=== PATIENT | female | born 1995 | race Caucasian/White ===

== ENCOUNTER 2022-12-18 17:35 | Emergency (ER) | payer BC, OTHER ==
--- NOTE | 2022-12-18 19:26 | ED ---
Fever HPI - General Source: patient, family, RN notes reviewed Mode of arrival: wheelchair Limitations: no limitations <Aditi Berman - Last Filed: 12/18/22 19:25> <Yogi Barton - Last Filed: 12/18/22 23:01> - General Chief Complaint: Fever Stated Complaint: 8 weeks preg/fever Time Seen by Provider: 12/18/22 19:25 - History of Present Illness Initial Comments: Patient is a 27-year-old female who presents to the emergency department for fever. Patient has upper respiratory symptoms including fever, sore throat, headache, body aches. She is a weeks . No abdominal pain or vaginal bleeding. (Aditi Berman) Patient is a 27-year-old female currently 8 weeks presenting with chief complaint of fever. Symptoms started this morning. She also admits to sore throat, headache, body aches, lower back pain. No cough, chest pain, difficulty breathing. She is having no abdominal pain or vaginal bleeding. She has her first appointment tomorrow with Dr. Cleaning. (Yogi Barton) - Related Data Previous Rx's Medication Instructions Recorded Fluconazole [Diflucan] 150 mg PO ONCE #1 tab 06/23/15 Cephalexin [Keflex] 500 mg PO Q12HR 5 Days #10 cap 12/18/22 Allergies Allergy/AdvReac Type Severity Reaction Status Date / Time No Known Allergies Allergy Verified 12/18/22 18:12 Review of Systems ROS Other: All systems not noted in ROS Statement are negative. <Aditi Berman - Last Filed: 12/18/22 19:25> ROS Other: All systems not noted in ROS Statement are negative. <Yogi Barton - Last Filed: 12/18/22 23:01> ROS Statement: Those systems with pertinent positive or pertinent negative responses have been documented in the HPI. Past Medical History Past Medical History: No Reported History Additional Past Medical History / Comment(s): Chronic UTI History of Any Multi-Drug Resistant Organisms: None Reported Past Surgical History: No Surgical Hx Reported Past Psychological History: No Psychological Hx Reported Smoking Status: Never smoker Past Alcohol Use History: None Reported Past Drug Use History: None Reported <Aditi Berman - Last Filed: 12/18/22 19:25> General Exam Limitations: no limitations <Aditi Berman - Last Filed: 12/18/22 19:25> Limitations: no limitations General appearance: alert, in no apparent distress Head exam: Present: atraumatic, normocephalic, normal inspection Eye exam: Present: normal appearance, EOMI. Absent: scleral icterus, periorbital swelling ENT exam: Present: normal exam, normal oropharynx, mucous membranes moist Neck exam: Present: normal inspection, full ROM Respiratory exam: Present: normal lung sounds bilaterally. Absent: respiratory distress, wheezes, rales, rhonchi, stridor Cardiovascular Exam: Present: regular rate, normal rhythm, normal heart sounds. Absent: systolic murmur, diastolic murmur, rubs, gallop, clicks Neurological exam: Present: alert, oriented X3, CN II-XII intact Psychiatric exam: Present: normal affect, normal mood Skin exam: Present: warm, dry, intact, normal color. Absent: rash <Yogi Barton - Last Filed: 12/18/22 23:01> - General Exam Comments Initial Comments: Visual Physical Exam Vital signs reviewed General: Well-appearing, nontoxic, no acute distress. Head: Normocephalic, atraumatic Eyes: PERRLA, EOMI ENT: Airway patent Chest: Nonlabored breathing Skin: No visual rash, normal skin tone Neuro: Alert and oriented 3 Musculoskeletal: No gross abnormalities (Aditi Berman) Course Vital Signs 12/18/22 12/18/22 18:09 22:45 Temperature 99.7 F H 98.2 F Pulse Rate 115 H 93 Respiratory 18 20 Rate Blood Pressure 119/72 114/78 O2 Sat by Pulse 97 99 Oximetry Medical Decision Making <Yogi Barton - Last Filed: 12/18/22 23:01> - Medical Decision Making Was pt. sent in by a medical professional or institution (, PA, CRITICAL CARE NURSE PRACTITIONER, urgent care, hospital, or [facility]...) When possible be specific @ -No Did you speak to anyone other than the patient for history (EMS, parent, family, police, friend...)? What history was obtained from this source @ -No Did you review nursing and triage notes (agree or disagree)? Why? @ -I reviewed and agree with nursing and triage notes Were old charts reviewed (outside hosp., previous admission, EMS record, old EKG, old radiological studies, urgent care reports/EKG's, [facility] records)? Report findings @ -No old charts were reviewed Differential Diagnosis (chest pain, altered mental status, abdominal pain women, abdominal pain men, vaginal bleeding, weakness, fever, dyspnea, syncope, headache, dizziness, GI bleed, back pain, seizure, CVA, palpatations, mental health, musculoskeletal)? @ - MDM Differential Fever: Pneumonia, viral URI, endocarditis, myocarditis, pericarditis, otitis, sinusitis, peritonsillar Abscess, retropharyngeal Abscess, epiglottitis, peritonitis, appendicitis, Sheryl cystitis, diverticulitis, hepatitis, colitis, UTI, PID, TOA, pyelonephritis, prostatitis, epididymitis, meningitis, encephalitis, pulmonary embolism, CVA, thyroid storm, pancreatitis, adrenal crisis, cavernous sinus thrombosis this is not meant to be an all-inclusive list. EKG interpreted by me (3pts min.). @ -As above X-rays interpreted by me (1pt min.). @ -None done CT interpreted by me (1pt min.). @ -None done U/S interpreted by me (1pt. min.). @ -None done What testing was considered but not performed or refused? (CT, X-rays, U/S, labs)? Why? @ -None What meds were considered but not given or refused? Why? @ -None Did you discuss the management of the patient with other professionals (professionals i.e. , PA, CRITICAL CARE NURSE PRACTITIONER, lab, RT, psych nurse, high school social science teacher, hearing stenographer, teacher, homicide squad commanding officer, outsole caser)? Give summary @ -No Was smoking cessation discussed for >3mins.? @ -No Was critical care preformed (if so, how long)? @ -No Were there social determinants of health that impacted care today? How? (Homelessness, low income, unemployed, alcoholism, drug addiction, transportation, low edu. Level, literacy, decrease access to med. care, correction, rehab)? @ -No Was there de-escalation of care discussed even if they declined (Discuss DNR or withdrawal of care, Hospice)? DNR status @ -No What co-morbidities impacted this encounter? (DM, HTN, Smoking, COPD, CAD, Cancer, CVA, ARF, Chemo, Hep., AIDS, mental health diagnosis, sleep apnea, mo rbid obesity)? @ -None Was patient admitted / discharged? Hospital course, mention meds given and route, prescriptions, significant lab abnormalities, going to OR and other pertinent info. @ -Patient is a 27-year-old female he weeks presenting with chief complaint of fever. Also admits to sore throat, body aches, headache. No vaginal bleeding or abdominal pain. Physical examination is unremarkable. Patient is negative for influenza, RSV, Covid, group A strep. Urine is positive for leukocytes and 8 RBCs. She'll be treated with Keflex. She has her first appointment tomorrow Dr. Cleaning, instructed to follow-up. Educated on Tylenol for fever and pain management. Follow-up with PCP. Report back to ER with any new or worsening symptoms. Discussed return parameters and answered all questions. Patient conveyed verbal understanding and agreed to the plan. I discussed this case in detail with my attending Dr. Pierson Undiagnosed new problem with uncertain prognosis? @ -No Drug Therapy requiring intensive monitoring for toxicity (Heparin, Nitro, Insulin, Cardizem)? @ -No Were any procedures done? @ -No Diagnosis/symptom? @ -UTI Acute, or Chronic, or Acute on Chronic? @ -Acute Uncomplicated (without systemic symptoms) or Complicated (systemic symptoms)? @ -Uncomplicated Side effects of treatment? @ -No Exacerbation, Progression, or Severe Exacerbation? @ -No Poses a threat to life or bodily function? How? (Chest pain, [place], NC, pneumonia, PE, COPD, DKA, ARF, appy, cholecystitis, CVA, Diverticulitis, Homicidal, Suicidal, threat to staff... and all critical care pts) @ -No (Yogi Barton) - Lab Data Lab Results 12/18/22 12/18/22 12/18/22 Range/Units 19:58 19:58 20:56 Urine Color Yellow Urine Appearance Cloudy H (Clear) Urine pH 6.0 (5.0-8.0) Ur Specific Dahlgren 1.013 (1.001-1.035) Urine Protein Negative (Negative) Urine Glucose (UA) Negative (Negative) Urine Ketones 1+ H (Negative) Urine Blood Moderate H (Negative) Urine Nitrite Negative (Negative) Urine Bilirubin Negative (Negative) Urine Urobilinogen <2.0 (<2.0) mg/dL Ur Leukocyte Esterase Large H (Negative) Urine RBC 8 H (0-5) /hpf Urine WBC 15 H (0-5) /hpf Ur Squamous Epith Cells 13 H (0-4) /hpf Urine Mucus Few H (None) /hpf Influenza Type A (PCR) Not Detected (Not Detectd) Influenza Type B (PCR) Not Detected (Not Detectd) RSV (PCR) Not Detected (Not Detectd) SARS-CoV-2 (PCR) Not Detected (Not Detectd) Group A Strep (PCR) NOT DETECTED (Not Detectd) Disposition <AntonellaAditi - Last Filed: 12/18/22 19:25> Is patient prescribed a controlled substance at d/c from ED?: No Time of Disposition: 22:13 <Yogi Barton - Last Filed: 12/18/22 23:01> Clinical Impression: UTI (urinary tract infection) during , Pharyngitis Disposition: HOME SELF-CARE Condition: Good Instructions (If sedation given, give patient instructions): Pharyngitis (ED), Fever in Adults (ED), Urinary Tract Infection in (ED) Additional Instructions: Follow-up with PCP and [facility]. Report back to ER with any new or worsening symptoms. Take medication as prescribed. Take Tylenol as needed for fever and pain control. Rest and drink plenty of fluids. Prescriptions: Cephalexin [Keflex] 500 mg PO Q12HR 5 Days #10 cap Referrals: Bill Corral NPC [REFERRING] - 1-2 days Tanja Cleaning DO [Doctor of Osteopathic Medicine] - 1-2 days
[2022-12-18] MEDS ORDERED: ACETAMINOPHEN TAB 325 MG TAB PO STA (20:49)
[2022-12-18 21:22] LABS: Appearance,Urine Cloudy (Clear); Bilirubin,Urine Negative (Negative); Blood,Urine Moderate (Negative); Color,Urine Yellow; Glucose,Urine (UA) Negative (Negative); Ketones,Urine 1+ (Negative); Leukocyte Esterase,Urine Large (Negative); Mucus,Urine Few /hpf; Nitrite,Urine Negative (Negative); Protein,Urine Negative (Negative); RBC,Urine 8 /hpf (0-5); Specific Gravity,Urine 1.013 (1.001-1.035); Squamous Epithelial Cell,Urine 13 /hpf (0-4); Urobilinogen,Urine <2.0 mg/dL (<2.0); WBC,Urine 15 /hpf (0-5)
[2022-12-18] MEDS ORDERED: NITROFURANTOIN MONOHYD/M-CRYST 100 MG CAP PO STA (22:08)
[2022-12-18] MEDS ORDERED: CEPHALEXIN 500 MG CAP PO STA (22:11)
[2022-12-18 22:46] VITALS: BP 114/78; PULSE 93; RESP 20; TEMP 98.2
== END 2022-12-18 23:56 | disposition home or self-care (01) ==
LOC: EC 17:35 → SUPCPDRO 17:35 → EC 23:56
DX: O23.41 Unspecified infection of urinary tract in pregnancy, first trimester (principal); O99.511 Diseases of the respiratory system complicating pregnancy, first trimester; J02.9 Acute pharyngitis, unspecified; Z3A.08 8 weeks gestation of pregnancy; Z20.822 Contact with and (suspected) exposure to COVID-19
CPT/HCPCS: 81001; 87086; 87636; 87651; 99283

== ENCOUNTER 2023-07-24 14:13 | Inpatient (IN) | payer BC ==
[2023-07-24 14:57] LABS: Basophils % (A) 0 %; Eosinophils # (A) 0.1 k/uL (0-0.7); Eosinophils % (A) 1 %; HCT 33.4 % (34.0-46.0); HGB 11.5 gm/dL (11.4-16.0); Lymphocytes # (A) 1.9 k/uL (1.0-4.8); Lymphocytes % (A) 19 %; MCH 30.9 pg (25.0-35.0); MCHC 34.5 g/dL (31.0-37.0); MCV 89.7 fL (80.0-100.0); Mean Platelet Volume 9.8; Monocytes # (A) 0.5 k/uL (0-1.0); Monocytes % (A) 5 %; Neutrophils # (A) 7.7 k/uL (1.3-7.7); Neutrophils % (A) 74 %; Platelet Count 240 k/uL (150-450); RBC 3.73 m/uL (3.80-5.40); RDW 14.2 % (11.5-15.5); WBC 10.4 k/uL (3.8-10.6)
[2023-07-24 15:03] LABS: ALT 18 U/L (4-34); AST 23 U/L (14-36); African American GFR (CKD) >90 (>60 ml/min/1.73 sqM); Blood Urea Nitrogen 8 mg/dL (7-17); Non-African American GFR(CKD) >90 (>60 ml/min/1.73 sqM)
[2023-07-24] MEDS ORDERED: DINOPROSTONE 10 MG INSERT.ER VAGINAL ONE (15:39)
--- NOTE | 2023-07-24 16:24 | P.HPOB ---
History of Present Illness H&P Date: 07/24/23 Chief Complaint: gestational hypertension 28 year old presented to the office today at 38 weeks 6 days with elevated BPs. 150-160/100-109. She denies symptoms associated with pre-eclampsia. She has normal labs so far but BPs remain elevated. SVE closed/thick./-3. she is not juice and heart tones are category I. Review of Systems All systems: negative Constitutional: Denies chills, Denies fever Eyes: denies blurred vision, denies pain Ears, nose, mouth and throat: Denies headache, Denies sore throat Cardiovascular: Denies chest pain, Denies shortness of breath Respiratory: Denies cough Gastrointestinal: Denies abdominal pain, Denies diarrhea, Denies nausea, Denies vomiting Genitourinary: Denies dysuria, Denies hematuria Musculoskeletal: Denies myalgias Integumentary: Denies pruritus, Denies rash Neurological: Denies numbness, Denies weakness Psychiatric: Denies anxiety, Denies depression Endocrine: Denies fatigue, Denies weight change Past Medical History Past Medical History: No Reported History Additional Past Medical History / Comment(s): Chronic UTI History of Any Multi-Drug Resistant Organisms: None Reported Past Surgical History: No Surgical Hx Reported Smoking Status: Never smoker Medications and Allergies Home Medications Medication Instructions Recorded Confirmed Type Magnesium 200 mg PO DAILY 07/24/23 07/24/23 History Allergies Allergy/AdvReac Type Severity Reaction Status Date / Time No Known Allergies Allergy Verified 07/24/23 14:20 Exam Osteopathic Statement: *. No significant issues noted on an osteopathic str uctural exam other than those noted in the History and Physical/Consult. Intake and Output 07/24/23 07/24/23 07/24/23 06:59 14:59 22:59 Other: Weight 104.326 kg Heart: Regular rate and rhythm Lungs: Clear to auscultation bilaterally Abdomen: Soft, nontender Extremities: Negative Homans sign Results Result Diagrams: 07/24/23 14:35 07/24/23 14:35 Abnormal Lab Results - Last 24 Hours (Table) 07/24/23 Range/Units 14:35 RBC 3.73 L (3.80-5.40) m/uL Hct 33.4 L (34.0-46.0) % Assessment and Plan (1) Gestational hypertension Current Visit: Yes Status: Acute Code(s): O13.9 - GESTATIONAL HTN W/O SIGNIFICANT PROTEINURIA, UNSP TRIMESTER SNOMED Code(s): 79355146 (2) 38 weeks gestation of Current Visit: Yes Status: Acute Code(s): Z3A.38 - 38 WEEKS GESTATION OF SNOMED Code(s): 39218988 Plan: 1. induction of labor indicated due to GHTN 2. will induce with cervidil and then pitocin and amniotomy in the morning.
[2023-07-24] MEDS: LABETALOL 200 MG TAB PO SCH (17:26)
[2023-07-24 17:56] LABS: Appearance,Urine Clear (Clear); Bacteria,Urine Rare /hpf; Bilirubin,Urine Negative (Negative); Blood,Urine Negative (Negative); Color,Urine Colorless; Glucose,Urine (UA) Negative (Negative); Ketones,Urine Negative (Negative); Leukocyte Esterase,Urine Moderate (Negative); Nitrite,Urine Negative (Negative); Protein,Urine Negative (Negative); RBC,Urine 1 /hpf (0-5); Specific Gravity,Urine 1.003 (1.001-1.035); Squamous Epithelial Cell,Urine 1 /hpf (0-4); Urobilinogen,Urine <2.0 mg/dL (<2.0); WBC,Urine 4 /hpf (0-5)
[2023-07-24 17:58] LABS: Uric Acid 5.2 mg/dL (3.7-7.4)
[2023-07-24 18:11] LABS: Creatinine,Urine Random 15.2 mg/dL; Protein/Creatinine Ratio,Urine 0.921
[2023-07-24 18:53] LABS: INR 0.9 (<1.2); Partial Thromboplastin Time 25.1 sec (22.0-30.0); Prothrombin Time 9.9 sec (10.0-12.5)
[2023-07-25] MEDS: LABETALOL 200 MG TAB PO SCH ×3 (00:04→21:02)
[2023-07-25] MEDS ORDERED: ACETAMINOPHEN TAB 325 MG TAB PO STA (00:05)
[2023-07-25] MEDS ORDERED: METHYLERGONOVINE 0.2 MG/ML 1 ML AMP IM PRN ×2 (04:05→21:51)
[2023-07-25] MEDS ORDERED: CARBOPROST TROMETHAMINE 250 MCG/ML 1 ML AMP IM PRN ×2 (04:05→21:51)
[2023-07-25] MEDS ORDERED: miSOPROStoL 200 MCG TAB PO PRN ×2 (04:05→21:51)
[2023-07-25] MEDS ORDERED: OXYTOCIN 10 UNIT/ML 1 ML VIAL IM PRN ×2 (04:05→21:51)
[2023-07-25] MEDS ORDERED: LIDOCAINE 0.5% (PF) 5 MG/ML (50 ML SDV) SQ PRN (04:05)
[2023-07-25] MEDS ORDERED: TRANEXAMIC 1,000 MG/100ML-NACL 1,000 MG in EMPTY BAG 1 BAG IV PRN ×2 (04:05→21:51)
[2023-07-25] MEDS ORDERED: OXYTOCIN 30 UNITS/500 ML NS 30 UNIT in SALINE 1 500ML.BAG IV SCH ×2 (04:15→22:00)
[2023-07-25] MEDS: LACTATED RINGERS 1,000 ML IV SCH (05:30)
[2023-07-25] MEDS: OXYTOCIN 30 UNITS/500 ML NS 30 UNIT in SALINE 1 500ML.BAG IV SCH ×2 (05:55→20:40)
[2023-07-25] MEDS ORDERED: NALBUPHINE 10 MG/ML (10 ML MDV) IV PRN (06:21)
[2023-07-25] MEDS ORDERED: ROPIVACAINE 5 MG/ML 30 ML VIAL ONE (11:32)
[2023-07-25] MEDS ORDERED: SODIUM CHLORIDE 0.9% 250 ML BAG ONE (11:32)
[2023-07-25] MEDS ORDERED: fentaNYL (PF) 50 MCG/ML 5 ML AMP ONE (11:32)
[2023-07-25] MEDS ORDERED: CITRIC ACID-SODIUM CITRATE 15 ML CUP PO ONE (21:51)
[2023-07-25] MEDS ORDERED: DEXAMETHASONE SOD PHOSPHATE 4 MG/ML 1 ML VIAL ONE (22:09)
[2023-07-25] MEDS ORDERED: fentaNYL (PF) 50 MCG/ML 2 ML AMP ONE (22:09)
[2023-07-25] MEDS ORDERED: KETOROLAC 15 MG/ML 1 ML VIAL ONE (22:09)
[2023-07-25] MEDS ORDERED: ONDANSETRON 4 MG/2 ML VIAL ONE (22:09)
[2023-07-25] MEDS ORDERED: OXYTOCIN 30 UNITS/500 ML NS BAG IV ONE (22:09)
[2023-07-25] MEDS ORDERED: MORPHINE SULFATE (PF) 0.3 MG/0.3 ML SYR ONE (22:09)
--- NOTE | 2023-07-25 23:12 | P.OP ---
Date of Procedure: 07/25/23 Preoperative Diagnosis: 1. Intrauterine at 39-0/7 weeks. 2. Failure to progress. 3. Maternal exhaustion and pain. 4. Preeclampsia without severe features. Postoperative Diagnosis: Same Procedure(s) Performed: Primary low transverse section Anesthesia: epidural (With Duramorph) Surgeon: Clara Kelley Manual Lathe Machinist #1: Norma Hidalgo Estimated Blood Loss (ml): 750 Pathology: other (Placenta) Condition: stable Disposition: floor Indications for Procedure: This is a 28-year-old female 1 para 0 at 39-0/7 weeks who underwent Cervidil cervical ripening yesterday followed by oxytocin induction of labor and artificial rupture of membranes this morning. She was admitted by Dr. Cleaning and started on labetalol 200 mg twice a day for increased blood pressures. She was also noted to have an elevated protein to creatinine ratio. She progressed to a maximum of 6 cm. She did receive epidural anesthesia. She had slow progress to 6 cm all day and continued to have severe rectal pressure despite epidural boluses. At this point she did request a section. Her pelvic arch did feel very contracted and with the slow progress, I did agree with proceeding towards delivery. I have discussed the risks, benefits, and alternative therapies for the above- mentioned procedure and for both sedation/anesthesia as well as necessary blood products administration, if indicated, as they pertain to this patient. The patient has indicated her understanding and acceptance of the risks and procedures discussed. Operative Findings: A viable male infant is noted in the occiput posterior lie with scores of 8 at 1 minute and 9 at 5 minutes and weight of 6 lbs. 7 oz. Normal uterus tubes and ovaries are noted. Description of Procedure: The patient is taken to the operating room where she is placed in the dorsal supine position with leftward tilt after epidural anesthesia is bolused. She is prepped and draped in the normal sterile fashion. Skin was tested and found to be adequately anesthetized. A Pfannenstiel skin incision was made with a scalpel. A second knife was used to carry the incision down to the underlying layer of fascia. The fascia was nicked in the midline with a scalpel and then extended laterally bilaterally with Wagner scissors. The anterior lip of the fascia was grasped with 2 Chadwick clamps and then dissected off the underlying rectus muscle in the midline with Wagner scissors. The inferior aspect of the fascial incision was grasped with 2 Chadwick clamps and dissected off the underlying rectus muscle and the midline with Wagner scissors. Next the peritoneum layer was tented up with 2 hemostats and then entered sharply with the scalpel. The incision is extended superiorly and inferiorly with Metzenbaum scissors. Next a DeLee retractor is placed. The vesicouterine peritoneum is entered sharply with Metzenbaum scissors and extended laterally bilaterally with Metzenbaum scissors and then the bladder flap is pushed inferiorly. The lower uterine segment is incised in transverse fashion with the scalpel and then bluntly entered with a hemostat. Clear fluid is noted. The incision was then extended laterally bilaterally with 2 fingers. Next the 's head is delivered through the incision and noted to be in a straight occiput posterior lie. Nose and mouth are bulb suctioned. The remainder of the is easily delivered and placed on mother's abdomen. Cord is clamped and cut. Infant is taken to warmer by nursing staff. Uterine fundus is gently massaged and placenta is delivered manually. Uterus is exteriorized and cleared of all clots and debris. Uterine incision is closed with 0 Vicryl suture in a running locked fashion. A second layer of 0 Vicryl suture is used in a running fashion for hemostasis. Once adequate hemostasis as assured, the vesicouterine peritoneum is reapproximated with 2-0 Vicryl suture in a running fashion. Posterior cul-de-sac is suctioned of all clots and debris. Uterus is returned to the abdomen. Incision is noted to be hemostatic. Peritoneal layer is closed with 0 Vicryl suture in a running fashion. Muscle layer is reapproximated with 0 Vicryl suture in interrupted fashion. Fascia layer is then closed with 0 PDS suture with 2 sutures meeting in the midline and the knots buried in either side and in the midline. The subcutaneous tissue was then closed with 2-0 Vicryl suture. Skin layer was then closed with tamica. All sponge and needle counts are correct. The patient is taken to recovery room in stable condition.
[2023-07-25] MEDS ORDERED: diphenhydrAMINE 25 MG CAP PO PRN (23:15)
[2023-07-25] MEDS ORDERED: diphenhydrAMINE 50 MG/ML 1 ML VIAL IVP PRN ×2 (23:15)
[2023-07-25] MEDS ORDERED: HYDROmorphone 1 MG/ML 1 ML SYRINGE IVP PRN (23:15)
[2023-07-25] MEDS ORDERED: LABETALOL 5 MG/ML VIAL MDV IVP PRN ×3 (23:15)
[2023-07-25] MEDS ORDERED: ZOLPIDEM 5 MG TAB PO PRN (23:15)
[2023-07-25] MEDS ORDERED: SIMETHICONE 80 MG CHEWABLE PO PRN (23:15)
[2023-07-25] MEDS ORDERED: diphenhydrAMINE 50 MG CAP PO PRN (23:15)
[2023-07-25] MEDS ORDERED: NALOXONE 0.4 MG/ML 1 ML VIAL IV PRN (23:15)
[2023-07-25] MEDS ORDERED: METOCLOPRAMIDE 5 MG/ML 2 ML VIAL IVP PRN (23:15)
[2023-07-25] MEDS ORDERED: HYDROmorphone 0.5 MG/0.5 ML SYRINGE IVP PRN (23:15)
[2023-07-25] MEDS ORDERED: hydrALAZINE HCL 20 MG/ML 1 ML VIAL IVP PRN (23:15)
[2023-07-25] MEDS ORDERED: LANOLIN CREAM 5 GM TUBE TOPICAL PRN (23:15)
[2023-07-25] MEDS ORDERED: ONDANSETRON 4 MG/2 ML VIAL IVP PRN (23:15)
[2023-07-25] MEDS ORDERED: MAGNESIUM SULFATE-WATER PMX 4 GM in WATER FOR INJECTION 1 100ML.BAG IVPB ONE (23:30)
[2023-07-25] MEDS: MAGNESIUM SULFATE-WATER PMX 20 GM in WATER FOR INJECTION 1 500ML.BAG IV SCH (23:44)
[2023-07-26] MEDS: ACETAMINOPHEN TAB 500 MG TAB PO SCH ×4 (01:00→19:37)
[2023-07-26] MEDS: IBUPROFEN 600 MG TAB PO SCH ×4 (04:21→23:09)
[2023-07-26] MEDS ORDERED: ACETAMINOPHEN IV (For NPO) 1,000 MG in EMPTY BAG 1 BAG IVPB SCH (06:00)
[2023-07-26] MEDS ORDERED: KETOROLAC 15 MG/ML 1 ML VIAL IVP SCH (06:00)
[2023-07-26 08:10] LABS: Basophils % (A) 0 %; Eosinophils % (A) 0 %; HCT 29.7 % (34.0-46.0); Lymphocytes # (A) 1.2 k/uL (1.0-4.8); Lymphocytes % (A) 7 %; MCH 31.2 pg (25.0-35.0); MCHC 33.7 g/dL (31.0-37.0); MCV 92.4 fL (80.0-100.0); Mean Platelet Volume 8.7; Monocytes # (A) 0.7 k/uL (0-1.0); Monocytes % (A) 4 %; Neutrophils # (A) 15.9 k/uL (1.3-7.7); Neutrophils % (A) 89 %; Platelet Count 226 k/uL (150-450); RBC 3.21 m/uL (3.80-5.40); WBC 17.9 k/uL (3.8-10.6)
[2023-07-26] MEDS ORDERED: MAGNESIUM OXIDE 400 MG TAB PO SCH (09:00)
[2023-07-26] MEDS: LABETALOL 200 MG TAB PO SCH (09:01)
[2023-07-26] MEDS: SENNOSIDES-DOCUSATE SODIUM 1 EACH TAB PO SCH (09:02)
[2023-07-26] MEDS: MAGNESIUM SULFATE-WATER PMX 20 GM in WATER FOR INJECTION 1 500ML.BAG IV SCH ×2 (09:02→19:36)
--- NOTE | 2023-07-26 09:02 | P.PN ---
Progress Note - Text Progress Note Date: 07/26/23 (3149) Anesthesia Postop day 1 Subjective: Status Post section with Duramorph. Patient seen and examined. Doing well without complaint. VAS 4 out of 10. No nausea or pruritus. Afebrile. Gross lower extremity strength intact. Without apparent anesthetic complications. Objective: Vital signs reviewed Heart: Regular Rate Lungs: Good chest excursion Abdomen: Appears nondistended Assessment: Status post with Duramorph postop day 1 Plan: Continue current care with your medical management. Anticipated end to the Duramorph section around time today. You may see increased pain needs around this time.
--- NOTE | 2023-07-26 10:15 | P.PNOBGPC ---
Subjective - Subjective Principal diagnosis: Status post primary section postoperative day #1 Interval history: Patient is doing okay. She has not ambulated yet due to magnesium sulfate seizure prophylaxis. She denies any nausea or dizziness. She denies any bowel movement but has had flatus. Baby is doing well. Patient reports: Reports appetite normal, Reports pain well controlled, Denies nauseated [place]: nursing well Objective - Vital Signs Latest vital signs: Vital Signs Temp Pulse Resp BP Pulse Ox 07/26/23 08:00 96.7 F L 88 16 117/71 100 07/26/23 06:53 97.0 F L 86 16 115/61 99 07/26/23 05:00 85 16 115/62 97 07/26/23 04:00 97.0 F L 97 16 123/78 07/26/23 03:00 82 16 127/70 98 07/26/23 01:38 85 16 132/80 98 07/26/23 01:08 89 16 126/79 97 07/26/23 00:40 81 16 129/79 97 07/26/23 00:25 80 16 124/71 97 07/26/23 00:05 84 16 98 07/25/23 23:53 96.4 F L 81 16 125/71 99 07/25/23 23:38 77 16 132/84 98 07/25/23 23:25 85 16 133/81 97 07/25/23 23:10 96.4 F L 77 16 129/73 95 Intake and Output 07/25/23 07/26/23 07/26/23 22:59 06:59 14:59 Intake Total 29.5 465 Output Total 1325 1100 Balance 29.5 -1325 -635 Intake: Intake, IV Titration 29.5 465 Amount Magnesium Sulfate-Water 465 Pmx 20 gm In Water For Injection 1 500ml.bag @ 2 GM/HR 50 mls/hr IV .Q10H [facility] Rx#:[id number] Oxytocin 30 Units/500 ml 29.5 Ns 30 unit In Saline 1 500ml.bag @ Per Protocol IV .Q0M [facility] Rx#:[id number] Output: Urine 1250 1100 Estimated Blood Loss 75 - Exam Extremities: Present: normal. Absent: tenderness, edema Abdomen: Present: normal appearance, soft. Absent: distention, tenderness Incision: Present: normal, dry, intact. Absent: erythematous Uterus: Present: normal, firm. Absent: tenderness - Labs Labs: Abnormal Lab Results - Last 24 Hours (Table) 07/26/23 Range/Units 07:34 WBC 17.9 H (3.8-10.6) k/uL RBC 3.21 L (3.80-5.40) m/uL Hgb 10.0 L D (11.4-16.0) gm/dL Hct 29.7 L (34.0-46.0) % Neutrophils # 15.9 H (1.3-7.7) k/uL Assessment and Plan Assessment: Status post primary low transverse section postoperative day #1 Preeclampsia without severe features-on labetalol 200 mg twice a day and currently on magnesium sulfate seizure prophylaxis Plan: Will continue magnesium sulfate until 11 PM tonight and then discontinue. We'll continue to observe blood pressures into tomorrow. If everything is stable, may be able to be discharged home tomorrow. Will advance diet after magnesium sulfate is turned off.
[2023-07-26] MEDS: LACTATED RINGERS 1,000 ML IV SCH (13:19)
[2023-07-27] MEDS: SENNOSIDES-DOCUSATE SODIUM 1 EACH TAB PO SCH ×2 (00:38→08:07)
[2023-07-27] MEDS: LABETALOL 200 MG TAB PO SCH ×2 (00:39→08:08)
[2023-07-27] MEDS: ACETAMINOPHEN TAB 500 MG TAB PO SCH ×3 (01:34→13:27)
[2023-07-27] MEDS: IBUPROFEN 600 MG TAB PO SCH ×2 (04:36→10:48)
[2023-07-27 08:43] VITALS: BP 122/80; PULSE 78; RESP 17; TEMP 98.3
--- NOTE | 2023-07-27 11:28 | P.DS ---
Providers Date of admission: 07/24/23 15:45 Expected date of discharge: 07/27/23 Attending physician: Tanja Cleaning Primary care physician: Stated None Hospital Course: This is a 28-year-old female 1 para 0 at 39-0/7 weeks who presented with elevated blood pressures. She underwent Cervidil cervical ripening followed by oxytocin induction of labor. She was also placed on labetalol 200 mg twice a day per Dr. Cleaning. She reached a maximum of 6 cm and then underwent a primary low transverse section on 07/25/2023 due to failure to progress. She delivered a viable male with scores of 8 at 1 minute and 9 at 5 minutes and infant weight of 6 lbs. 7 oz. on 07/25/2023. She was placed on magnesium sulfates seizure prophylaxis for 24 hours after delivery. Her blood pressures have stayed within normal range and she has been continued on labetalol 200 mg twice a day. She denies any symptoms related to preeclampsia currently. She is ambulating and passing flatus. She has not had a bowel movement yet. Her pain is fairly well controlled with ibuprofen and Tylenol and she did use 1 dose of oxycodone. She is breast-feeding without difficulty. Vital signs are stable. Abdomen is soft with positive bowel sounds 4. Incision is clean dry and intact with tamica in place. Extremities show negative Homans. Impression is status post primary low transverse section postoperative day #2, preeclampsia without severe pictures-status post magnesium sulfates seizure prophylaxis. Plan is to discharge home today. Routine postoperative and instructions are given. She is advised to follow up with Dr. Cleaning in the office in approximately 1 week for blood pressure and postoperative check and in 6 weeks for check. She is given a prescription for ibuprofen every 6 hours as needed and a few oxycodone. She is counseled regarding opioid use. She states she has a breast pump at home. She will continue on labetalol 200 mg twice a day. She is advised to call the office if she has any further questions or concerns prior to her appointment times. Procedures: Cervidil cervical ripening Oxytocin induction of labor Primary low transverse section for delivery of a viable male infant on 07/25/2023 Magnesium sulfate seizure prophylaxis Patient Condition at Discharge: Stable Plan - Discharge Summary New Discharge Prescriptions: New Labetalol [Trandate] 200 mg PO BID #30 tab Acetaminophen Tab [Tylenol] 1,000 mg PO Q6H tab Ibuprofen [Motrin] 600 mg PO Q6H #60 tab oxyCODONE HCL [OxyIR] 5 mg PO Q4HR PRN #12 tab PRN Reason: Pain Scale 4 - 6 Discontinued Magnesium 200 mg PO DAILY Discharge Medication List Acetaminophen Tab [Tylenol] 1,000 mg PO Q6H tab 07/27/23 [Rx] Ibuprofen [Motrin] 600 mg PO Q6H #60 tab 07/27/23 [Rx] Labetalol [Trandate] 200 mg PO BID #30 tab 07/27/23 [Rx] oxyCODONE HCL [OxyIR] 5 mg PO Q4HR PRN #12 tab 07/27/23 [Rx] Follow up Appointment(s)/Referral(s): Tanja Cleaning DO [Doctor of Osteopathic Medicine] - 1 Week Discharge Disposition: HOME SELF-CARE
== END 2023-07-27 14:12 | disposition home or self-care (01) | DRG 788 ==
LOC: FBPOP 14:13 → 4FBP 15:45
PROVIDERS: ADMIT Obstetrics & Gynecology; ATTEND Obstetrics & Gynecology
PROC: 3E0P7VZ Introduction of Hormone into Female Reproductive, Via Natural or Artificial Opening (ICD-10-PCS; principal; 2023-07-24)
PROC: 10907ZC Drainage of Amniotic Fluid, Therapeutic from Products of Conception, Via Natural or Artificial Opening (ICD-10-PCS; 2023-07-25)
PROC: 10D00Z1 Extraction of Products of Conception, Low, Open Approach (ICD-10-PCS; 2023-07-25)
PROC: 3E033VJ Introduction of Other Hormone into Peripheral Vein, Percutaneous Approach (ICD-10-PCS; 2023-07-25)
DX: O13.4 Gestational [pregnancy-induced] hypertension without significant proteinuria, complicating childbirth (principal); O14.04 Mild to moderate pre-eclampsia, complicating childbirth; O75.81 Maternal exhaustion complicating labor and delivery; O62.2 Other uterine inertia; Z28.310 Unvaccinated for COVID-19; Z87.440 Personal history of urinary (tract) infections; Z3A.38 38 weeks gestation of pregnancy; Z37.0 Single live birth
CPT/HCPCS: 59025; 81001; 82565; 82570; 83615; 84156; 84450; 84460; 84520; 84550; 85025; 85384; 85610; 85730; 86850; 86900; 86901